=== PATIENT | male | born 1985 | race Native Hawaiian/Other Pacific Islander ===

== ENCOUNTER 2017-02-09 09:42 | Outpatient (CLI) | payer BC ==
[~2017-02-09 09:42] MED LIST: BENZ100C8 PO; Z-PAK PO
[2017-02-09 10:20] LABS: PLATELET COUNT 298 K/uL (142-355); POTASSIUM 4.2 mmol/L (3.6-5.2); SODIUM 139 mmol/L (136-145)
== END 2017-02-09 19:05 | disposition home or self-care (01) ==
LOC: LAB 09:42
PROVIDERS: Nurse Practitioner Family
DX: R89.8 Other abnormal findings in specimens from other organs, systems and tissues (principal)
CPT/HCPCS: 80053; 85027

== ENCOUNTER 2019-06-19 15:31 | Outpatient (CLI) | payer BC | END 2019-06-19 20:46 | disposition home or self-care (01) | LOC: RAD 15:31 | DX: M54.9 Dorsalgia, unspecified (principal); M54.5 Low back pain; M54.10 Radiculopathy, site unspecified ==

== ENCOUNTER 2020-03-14 02:42 | Emergency (ER) | payer BC ==
[~2020-03-14] VITALS: Ht 177.8 cm; Wt 86.2 kg
[2020-03-14 02:42] VITALS: TEMP 98.1
[2020-03-14 03:27] LABS: PLATELET COUNT 303 K/uL (142-355)
[2020-03-14 03:32] LABS: POTASSIUM 3.6 mmol/L (3.6-5.2)
[2020-03-14 03:40] LABS: PARTIAL THROMBOPLASTIN TIME 20.5 SECONDS (24.5-33.6)
[2020-03-14 06:00] VITALS: BP 134/78
== END 2020-03-14 07:05 | disposition home or self-care (01) ==
LOC: ED 02:47
PROVIDERS: Family Medicine
PROC: 0RSMXZZ Reposition Left Elbow Joint, External Approach (ICD-10-PCS; principal; 2020-03-14)
DX: S53.195A Other dislocation of left ulnohumeral joint, initial encounter (principal); S52.125A Nondisplaced fracture of head of left radius, initial encounter for closed fracture; V86.65XA Passenger of 3- or 4- wheeled all-terrain vehicle (ATV) injured in nontraffic accident, initial encounter; Y92.89 Other specified places as the place of occurrence of the external cause
CPT/HCPCS: 36415; 80053; 80320; 85027; 85610; 85730; 96374; 96375; 96376; 99284; J1885; J2270; J2405; J3490

== ENCOUNTER 2022-03-08 08:43 | Outpatient (CLI) | payer BC | END 2022-03-08 19:17 | disposition home or self-care (01) | LOC: US 08:43 | PROVIDERS: ATTEND Nurse Practitioner Family | DX: R10.9 Unspecified abdominal pain (principal); R11.2 Nausea with vomiting, unspecified; R10.13 Epigastric pain; R93.5 Abnormal findings on diagnostic imaging of other abdominal regions, including retroperitoneum ==

== ENCOUNTER 2022-04-03 07:59 | Outpatient (CLI) | payer BC | END 2022-04-03 18:48 | disposition home or self-care (01) | LOC: NM 07:59 | PROVIDERS: ATTEND Internal Medicine Gastroenterology | DX: R10.11 Right upper quadrant pain (principal); R93.2 Abnormal findings on diagnostic imaging of liver and biliary tract | CPT/HCPCS: A9537 ==